=== PATIENT | female | born 1945 | race Caucasian/White ===

== ENCOUNTER 2023-05-27 06:18 | Day surgery (SDC) | payer OTHER ==
--- NOTE | 2023-05-24 09:00 | RAD REPORT ---
EXAM DESCRIPTION: Lexus Farah (2 Views)05/24/2023 8:51 am CLINICAL HISTORY: Preop for gallbladder surgery COMPARISON: 2016 FINDINGS: The lungs appear clear of acute infiltrate. The heart is normal size IMPRESSION: No acute abnormalities displayed
[2023-05-24 09:53] LABS: Hematocrit 42.4 % (36.0-45.0); Lymphocytes % 35.5 % (15.3-44.8); MCV 90.3 fL (80-100); MPV 8.1 fL (7.6-11.3); Platelets 262 thou/uL (152-406)
[2023-05-24 10:08] LABS: Potassium 4.1 mEq/L (3.5-5.1)
--- NOTE | 2023-05-24 11:38 | EKG ---
Test Date: 2023-05-24 Test Time: 08:31:21 Director Clinical Research: JOSE ANGEL MEASUREMENT RESULTS: Intervals: Rate: 57 TN: 156 QRSD: 80 QT: 408 QTc: 397 [place]: P: 69 TN: 156 QRS: 68 T: 74 INTERPRETIVE STATEMENTS: Sinus bradycardia with occasional premature ventricular complexes Septal infarct, age undetermined Abnormal ECG Compared to ECG 07/28/2015 11:08:16 Ventricular premature complex(es) now present Myocardial infarct finding now present Sinus rhythm no longer present Electronically Signed On 05-24-23 11:37:48 CDT by Mark Anthony Soria
[2023-05-27] MEDS ORDERED: CEFAZOLIN SODIUM 1 GM/VIAL ONE (06:46)
[2023-05-27] MEDS ORDERED: Ringers Lactate 1,000 ML IV ONE (06:46)
[2023-05-27] MEDS ORDERED: SUGAMMADEX SODIUM 200 MG/2 ML VIAL IV ONE (07:18)
[2023-05-27] MEDS ORDERED: CEFOXITIN SODIUM 1 GM/VIAL ONE (07:19)
[2023-05-27] MEDS ORDERED: SUCCINYLCHOLINE 20 MG/ML (10 ML) IV ONE (07:19)
[2023-05-27] MEDS ORDERED: propofoL 200 MG/20 ML VIAL IV ONE (07:22)
[2023-05-27] MEDS ORDERED: FENTANYL CITR 100 MCG/2 ML ONE ×2 (07:22→08:36)
[2023-05-27] MEDS ORDERED: ROCURONIUM 50 MG/5 ML VIAL IV ONE (07:23)
[2023-05-27] MEDS ORDERED: LIDOCAINE 2% MPF 5 ML VIAL ONE (07:26)
[2023-05-27] MEDS ORDERED: EPHEDRINE SULF 50 MG/ML VIAL ONE (08:01)
[2023-05-27] MEDS ORDERED: GLYCOPYRROLATE 0.2 MG/ML SYR ONE ×2 (08:01→08:58)
[2023-05-27] MEDS ORDERED: NEOSTIGMINE 1 MG/ML -10 ML VIAL ONE (08:59)
[2023-05-27] MEDS ORDERED: dexAMETHasone 4 MG/ML VIAL ONE (09:00)
[2023-05-27] MEDS ORDERED: ONDANSETRON 4 MG/2 ML VIAL ONE (09:00)
--- NOTE | 2023-05-27 09:10 | P.OP ---
Date of Service: 05/27/23 Preop diagnosis: Chronic cholecystitis, biliary dyskinesia and questionable gallbladder mass Postop diagnosis: Same with extensive adhesions Procedure performed: Laparoscopic cholecystectomy and laparoscopic lysis of adhesions Surgeon: Enrico Espino MD Offset Pressman: None Estimated blood loss: Minimal Specimen: Gallbladder Findings: As above Anesthesia: General Complications: None Drains: None Fluids and blood products: Nonapplicable Disposition: Recovery room Operative note: Patient brought to the OR and placed in supine position. General anesthesia begun. Patient prepped and draped in usual sterile fashion. Marcaine 0.5% infiltrated locally. 15 blade used to make a 1 cm supraumbilical midline incision. Subcu tissue divided. Bleeding controlled cautery. Fascia identified and divided. #1 Vicryl stay suture placed. Peritoneal cavity entered with sharp and blunt dissection. 12 mm trocar placed into the perit licea cavity under direct vision. Pneumoperitoneum established. Laparoscopy revealed extensive adhesions in the right upper quadrant with attachments to the liver and the gallbladder. Approximately 15 minutes was utilized to lyse all of these adhesions. Bleeding was controlled cautery. Gallbladder identified and fundus retracted superiorly. There was some thickened gallbladder wall at the apex of the fundus. Infundibulum identified and retracted inferolaterally. Cystic duct and cystic artery clearly identified with blunt dissection. Clips placed and both structures divided. Gallbladder removed from the liver bed with cautery. Bleeding on the Liver bed controlled with cautery. Gallbladder retrieved centimeters via Endo Catch bag. Right upper quadrant irrigated. No evidence of bleeding or bile leakage appreciated. All trocars removed under direct vision. Stay sutures tied to each other to reapproximate the fascial defect. Subcutaneous wounds irrigated and bleeding controlled cautery. 3-0 chromic used to approximate subcutaneous tissue. Daniella used to close skin. Sterile dressing applied. Patient awakened and taken to recovery room in good general condition. CC: Dr. Macdonald's office
[2023-05-27] MEDS: HYDROMORPHONE HCL 1 MG/ML INJ ONE ×2 (09:37→09:48)
[2023-05-27 10:24] VITALS: O2SAT 98
[2023-05-27] MEDS: HYDROCODONE/APAP 7.5/325 MG TAB PO PRN ×2 (10:30→10:35)
[2023-05-27] MEDS ORDERED: HYDROCODONE/APAP 7.5/325 MG TAB ONE (10:45)
[2023-05-27 11:16] VITALS: BP 158/70; TEMP 97.2
== END 2023-05-27 11:04 | disposition home or self-care (01) ==
LOC: OR 06:18
PROVIDERS: ATTEND Surgery
PROC: 0DNU4ZZ Release Omentum, Percutaneous Endoscopic Approach (ICD-10-PCS; 2023-05-27)
PROC: 0FT44ZZ Resection of Gallbladder, Percutaneous Endoscopic Approach (ICD-10-PCS; principal; 2023-05-27 07:30)
DX: K81.1 Chronic cholecystitis (principal); R10.84 Generalized abdominal pain; K82.8 Other specified diseases of gallbladder; K66.0 Peritoneal adhesions (postprocedural) (postinfection); I10 Essential (primary) hypertension; E78.00 Pure hypercholesterolemia, unspecified; K21.9 Gastro-esophageal reflux disease without esophagitis; G47.33 Obstructive sleep apnea (adult) (pediatric); E66.9 Obesity, unspecified; Z68.41 Body mass index [BMI] 40.0-44.9, adult
CPT/HCPCS: 93005; 85025; 80048; 36415; 88304; 71046; 47562; 49329; J2704; J1100; J2710; J2001; J3010 ×2; J1170; J0694; J2405; J7120; J0690